=== PATIENT | female | born 1965 | race Caucasian/White ===

== ENCOUNTER 2016-09-10 06:14 | Inpatient (IN) | payer OTHER ==
[~2016-09-10] VITALS: Ht 162.6 cm; Wt 90.7 kg
--- NOTE | 2016-09-10 07:27 | PHYS DOC ---
Past Medical History Past Medical History: No Pertinent History Past Surgical History: Alcohol Use: Occasionally Drug Use: None Adult General Chief Complaint Chief Complaint: BACK PAIN OR INJURY HPI HPI Patient is a 51 year old female who presents with complaint of mid to low back pain. Patient states her symptoms started suddenly this morning approximately 3 hours prior to arrival. Patient states that she started having worsening tightness and spasms in the middle of her back. Patient states that this has progressed significantly since onset. Patient states she is having difficulty finding position of comfort. Patient denies any loss of bowel or bladder control , saddle anesthesia, or foot drop associated with her symptoms. Patient denies any previous history of back spasms or back pain. Patient has had no associated fevers. Patient states that she does have nausea currently. Patient states that her pain starts in her upper lumbar spine and feels like it is mostly on the right side but affects both sides at this time. Patient denies worsening pain with movement. Patient denies any significant past medical history. Patient states she took ibuprofen for the pain approximately 1-2 hours ago with no improvement in symptoms. Patient rates her pain currently as 7 out of 10. Review of Systems Review of Systems Constitutional: Denies fever or chills [] Eyes: Denies change in visual acuity, redness, or eye pain [] HENT: Denies nasal congestion or sore throat [] Respiratory: Denies cough or shortness of breath [] Cardiovascular: Denies chest pain or edema [] GI: Nausea, denies abdominal pain, vomiting, or diarrhea [] : Denies dysuria or hematuria [] Musculoskeletal: Back pain [] Integument: Denies rash or skin lesions [] Neurologic: Denies headache, focal weakness or sensory changes [] Current Medications Current Medications Current Medications Medications (Trade) Dose Ordered Sig/Della Start Time Stop Time Status Last Admin Dose Admin Ceftriaxone Sodium 50 ml @ 100 mls/hr 1X ONCE 09/10/16 09:00 09/10/16 09:29 DC 09/10/16 08:39 100 MLS/HR Diazepam (Valium) 5 mg 1X ONCE 09/10/16 07:30 09/10/16 07:31 DC 09/10/16 07:48 5 MG Fentanyl Citrate (Fentanyl 2ml Vial) 50 mcg PRN Q15MIN PRN 09/10/16 08:30 09/11/16 08:29 09/10/16 10:46 50 MCG Info (Do NOT chart on this entry -- for MONITORING) 1 each PRN DAILY PRN 09/10/16 08:45 09/12/16 08:44 Iohexol (Omnipaque 300 Mg/ml) 75 ml 1X ONCE 09/10/16 09:00 09/10/16 09:01 DC 09/10/16 08:44 75 ML Ondansetron HCl (Zofran) 4 mg 1X ONCE 09/10/16 07:30 09/10/16 07:31 DC 09/10/16 07:47 4 MG Sodium Chloride 1,000 ml @ 1,000 mls/hr Q1H 09/10/16 07:30 09/10/16 08:29 DC 09/10/16 07:43 1,000 MLS/HR Allergies Allergies Allergies Coded Allergies Type Severity Reaction Last Updated Verified No Known Drug Allergies 09/10/16 No Physical Exam Physical Exam Constitutional: Alert, afebrile, appears in moderate discomfort, seated in a position of comfort. [] HENT: Normocephalic, atraumatic, bilateral external ears normal, oropharynx moist, no oral exudates, nose normal. [] Eyes: PERRLA, EOMI, conjunctiva normal, no discharge. [] Neck: Normal range of motion, no tenderness, supple, no stridor. [] Cardiovascular:Heart rate regular rhythm, no murmur [] Lungs & Thorax: Bilateral breath sounds clear to auscultation [] Abdomen: Bowel sounds normal, soft, right upper quadrant tenderness to palpation , mild guarding, no rebound tenderness, no masses, no pulsatile masses. [] Skin: Warm, dry, no erythema, no rash. [] Back: No midline tenderness, minimal right paraspinous muscle tenderness to palpation, palpable paraspinous muscle spasm, normal range of motion. [] Extremities: No tenderness, no cyanosis, no clubbing, ROM intact, no edema. [] Neurologic: Alert and oriented X 3, normal motor function, normal sensory function, no focal deficits noted. [] Current Patient Data Vital Signs Vital Signs Date Time Temp Pulse Resp B/P (MAP) Pulse Ox O2 Delivery O2 Flow Rate FiO2 09/10/16 10:46 16 98 Room Air 09/10/16 10:30 73 135/69 (91) 09/10/16 06:21 97.4 97.4 Lab Values Laboratory Tests Test 09/10/16 07:30 09/10/16 07:35 Urine Collection Type Unknown Urine Color Yellow Urine Clarity Cloudy Urine pH 5.5 Urine Specific [place] >=1.030 Urine Protein Negative mg/dL (NEG-TRACE) Urine Glucose (UA) Negative mg/dL (NEG) Urine Ketones (Stick) Negative mg/dL (NEG) Urine Blood Trace (NEG) Urine Nitrite Negative (NEG) Urine Bilirubin Negative (NEG) Urine Urobilinogen Dipstick 0.2 mg/dL (0.2 mg/dL) Urine Leukocyte Esterase Moderate (NEG) Urine RBC 1-2 /HPF (0-2) Urine WBC 11-20 /HPF (0-4) Urine Squamous Epithelial Cells Many /LPF Urine Bacteria Few /HPF (0-FEW) Urine Mucus Marked /LPF White Blood Count 9.7 x10^3/uL (4.0-11.0) Red Blood Count 4.39 x10^6/uL (3.50-5.40) Hemoglobin 13.7 g/dL (12.0-15.5) Hematocrit 41.2 % (36.0-47.0) Mean Corpuscular Volume 94 fL (79-100) Mean Corpuscular Hemoglobin 31 pg (25-35) Mean Corpuscular Hemoglobin Concent 33 g/dL (31-37) Red Cell Distribution Width 13.7 % (11.5-14.5) Platelet Count 240 x10^3/uL (140-400) Neutrophils (%) (Auto) 69 % (31-73) Lymphocytes (%) (Auto) 22 % (24-48) L Monocytes (%) (Auto) 7 % (0-9) Eosinophils (%) (Auto) 2 % (0-3) Basophils (%) (Auto) 1 % (0-3) Neutrophils # (Auto) 6.7 x10^3uL (1.8-7.7) Lymphocytes # (Auto) 2.1 x10^3/uL (1.0-4.8) Monocytes # (Auto) 0.6 x10^3/uL (0.0-1.1) Eosinophils # (Auto) 0.2 x10^3/uL (0.0-0.7) Basophils # (Auto) 0.1 x10^3/uL (0.0-0.2) Sodium Level 141 mmol/L (136-145) Potassium Level 3.9 mmol/L (3.5-5.1) Chloride Level 108 mmol/L (98-107) H Carbon Dioxide Level 24 mmol/L (21-32) Anion Gap 9 (6-14) Blood Urea Nitrogen 14 mg/dL (7-20) Creatinine 0.8 mg/dL (0.6-1.0) Estimated GFR (Cockcroft-Gault) 75.6 BUN/Creatinine Ratio 18 (6-20) Glucose Level 110 mg/dL (70-99) H Calcium Level 8.3 mg/dL (8.5-10.1) L Total Bilirubin 0.2 mg/dL (0.2-1.0) Aspartate Amino Transferase (AST) 15 U/L (15-37) Alanine Aminotransferase (ALT) 28 U/L (14-59) Alkaline Phosphatase 69 U/L (46-116) Total Protein 7.2 g/dL (6.4-8.2) Albumin 3.9 g/dL (3.4-5.0) Albumin/Globulin Ratio 1.2 (1.0-1.7) Lipase 150 U/L (73-393) Laboratory Tests 09/10/16 07:35 Laboratory Tests 09/10/16 07:35 EKG EKG Not performed [] Radiology/Procedures Radiology/Procedures [facility] [address] [place] [address] IMAGING REPORT Signed PATIENT: VAIDM JOSEPH ACCOUNT: [id number] : 1965 LOCATION: ER AGE: 51 SEX: F EXAM STATUS: REG ER ORD. PHYSICIAN: JEANNIE SHARMA MD REASON: right lower abdominal pain PROCEDURE: CT ABD PELV W/ IV CONTRST ONLY CT of the abdomen and pelvis with contrast, 09/10/2016: History: Right lower quadrant and back pain Multidetector CT imaging was performed following an IV bolus injection of iodinated contrast material. There is mild linear atelectasis and/or scarring in the lung bases. No hepatic abnormality is seen. The gallbladder is at the upper limits of normal in size. No dense gallstones or pericholecystic edema is evident. The pancreas is unremarkable. The spleen is of normal size. There is a probable tiny subcentimeter cyst in the upper pole the left kidney. The kidneys and adrenal glands are otherwise unremarkable. The abdominal aorta is unremarkable. No abdominal or pelvic adenopathy is seen. The bowel loops are not dilated. A portion of the appendix is visualized and it shows no abnormality. No pericecal inflammatory process is seen. No free fluid or free air is evident in the abdomen or pelvis. IMPRESSION: No acute abdominal or pelvic abnormality is detected. PQRS Compliance Statement: One or more of the following individualized dose reduction techniques were utilized for this examination: 1. Automated exposure control 2. Adjustment of the mA and/or kV according to patient size 3. Use of iterative reconstruction technique DICTATED and SIGNED BY: DELMI GRAY MD DATE: 09/10/16919 CC: JEANNIE SHARMA MD; NO PCP ~ [facility] [address] [place] [address] IMAGING REPORT Signed PATIENT: VADIM JOSEPH ACCOUNT: [id number] : 1965 LOCATION: [address] [place] [address] AGE: 51 SEX: F EXAM STATUS: ADM IN ORD. PHYSICIAN: JEANNIE SHARMA MD REASON: right upper quadrant pain PROCEDURE: ABDOMEN LTD Abdomen Limited ultrasound 09/10/2016 Indication: Right upper quadrant pain, tenderness and nausea Comparison: Same day CT abdomen and pelvis. Findings: Visualized pancreatic body within normal limits. Homogeneous echotexture to the visualized hepatic parenchyma without suspicious focal mass or fluid collection in the visualized portions. Gallbladder is upper limits of normal in size with mild wall thickening measuring up to 6 mm. There is a gallstone at the neck measuring 16 mm. No pericholecystic fluid. Sonographic Caballero sign was elicited. No intrahepatic or ductal dilatation. Common bile duct is mildly dilated measuring 8 mm. Both kidneys are present, though not well evaluated due to poor acoustic window. Impression: Findings concerning for acute calculous cholecystitis. These results were discussed with Dr. Sharma of the emergency service by telephone at 11:10 AM 09/10/[address] Flora Briceno. DICTATED and SIGNED BY: FLORA BRICENO MD DATE: 09/10/16 1104 CC: JEANNIE SHARMA MD; NO PCP; OFELIA MCNEILL MD ~ [] Course & Med Decision Making Course & Med Decision Making Pertinent Labs and Imaging studies reviewed. (See chart for details) Patient was started on IV Valium, Zofran, and IV fluids. The patient's symptoms did not improve with treatment. Patient's CT scan was interpreted as normal, however patient continued to complain of severe symptoms and also stated that she was starting to have localizing pain to her right upper quadrant. For this reason ultrasound was ordered which showed the patient has evidence of cholelithiasis and gallbladder wall thickening with a positive sonographic Caballero's sign. Findings are concerning for possible acute cholecystitis. I spoke with Dr. Diop who stated that he would consult on patient in hospital for evaluation. Patient admitted to Dr. Mcneill. Dragon Disclaimer Debo Disclaimer This electronic medical record was generated, in whole or in part, using a voice recognition dictation system. Departure Departure Impression: Primary Impression: Cholecystitis, acute with cholelithiasis Disposition: ADMITTED INPATIENT Admitting Physician: Ofelia Mcnelil Condition: STABLE Referrals: NO PCP (PCP) Problem Qualifiers Primary Impression: Cholecystitis, acute with cholelithiasis Cholelithiasis location: gallbladder Biliary obstruction: without biliary obstruction Qualified Codes: K80.00 - Calculus of gallbladder with acute cholecystitis without obstruction JEANNIE SHARMA MD Sep 10, 2016 07:27
[2016-09-10] MEDS ORDERED: ONDANSETRON PF 4 MG/2 ML VIAL. IV ONE (07:30)
[2016-09-10] MEDS ORDERED: IV NORMAL SALINE 1000ML BAG 1,000 ML IV SCH (07:30)
[2016-09-10 07:51] LABS: BASO # 0.1 x10^3/uL (0.0-0.2); BASO % 1 % (0-3); EOS % 2 % (0-3); HEMATOCRIT 41.2 % (36.0-47.0); HEMOGLOBIN 13.7 g/dL (12.0-15.5); LYMPH # 2.1 x10^3/uL (1.0-4.8); LYMPH % 22 % (24-48); MEAN CORPUSCULAR HEMOGLOBIN 31 pg (25-35); MEAN CORPUSCULAR HGB CONC 33 g/dL (31-37); MEAN CORPUSCULAR VOLUME 94 fL (79-100); MONO % 7 % (0-9); NEUT % 69 % (31-73); PLATELET COUNT 240 x10^3/uL (140-400); RED BLOOD COUNT 4.39 x10^6/uL (3.50-5.40); RED CELL DISTRIBUTION WIDTH 13.7 % (11.5-14.5); WHITE BLOOD COUNT 9.7 x10^3/uL (4.0-11.0)
[2016-09-10 07:52] LABS: BILIRUBIN,URINE NEGATIVE (NEG); GLUCOSE,URINE NEGATIVE (NEG); NITRITE,URINE NEGATIVE (NEG); PH,URINE 5.5; PROTEIN,URINE NEGATIVE (NEG-TRACE); UROBILINOGEN,URINE 0.2 mg/dL (0.2 mg/dL)
[2016-09-10 08:05] LABS: CALCIUM 8.3 mg/dL (8.5-10.1); CREATININE 0.8 mg/dL (0.6-1.0); GFR 75.6; POTASSIUM 3.9 mmol/L (3.5-5.1)
[2016-09-10 08:10] LABS: ALBUMIN 3.9 g/dL (3.4-5.0); ALBUMIN/GLOBULIN RATIO 1.2 (1.0-1.7); TOTAL BILIRUBIN 0.2 mg/dL (0.2-1.0); TOTAL PROTEIN 7.2 g/dL (6.4-8.2)
[2016-09-10 08:20] LABS: BACTERIA,URINE FEW /HPF (0-FEW)
[2016-09-10 08:21] LABS: SQUAMOUS EPITHELIAL CELL,UR MANY /LPF
[2016-09-10] MEDS: fentaNYL PF VIAL 100 MCG/2 ML VIAL IV PRN ×3 (08:38→10:46)
[2016-09-10] MEDS ORDERED: CONTRAST GIVEN MC PRN (08:45)
[2016-09-10] MEDS ORDERED: IOHEXOL 300 MG/ML 75 ML VIAL IV ONE (09:00)
--- NOTE | 2016-09-10 09:27 | RAD ---
CT of the abdomen and pelvis with contrast, 09/10/2016: History: Right lower quadrant and back pain Multidetector CT imaging was performed following an IV bolus injection of iodinated contrast material. There is mild linear atelectasis and/or scarring in the lung bases. No hepatic abnormality is seen. The gallbladder is at the upper limits of normal in size. No dense gallstones or pericholecystic edema is evident. The pancreas is unremarkable. The spleen is of normal size. There is a probable tiny subcentimeter cyst in the upper pole the left kidney. The kidneys and adrenal glands are otherwise unremarkable. The abdominal aorta is unremarkable. No abdominal or pelvic adenopathy is seen. The bowel loops are not dilated. A portion of the appendix is visualized and it shows no abnormality. No pericecal inflammatory process is seen. No free fluid or free air is evident in the abdomen or pelvis. IMPRESSION: No acute abdominal or pelvic abnormality is detected. PQRS Compliance Statement: One or more of the following individualized dose reduction techniques were utilized for this examination: 1. Automated exposure control 2. Adjustment of the mA and/or kV according to patient size 3. Use of iterative reconstruction technique
--- NOTE | 2016-09-10 11:13 | RAD ---
Abdomen Limited ultrasound 09/10/2016 Indication: Right upper quadrant pain, tenderness and nausea Comparison: Same day CT abdomen and pelvis. Findings: Visualized pancreatic body within normal limits. Homogeneous echotexture to the visualized hepatic parenchyma without suspicious focal mass or fluid collection in the visualized portions. Gallbladder is upper limits of normal in size with mild wall thickening measuring up to 6 mm. There is a gallstone at the neck measuring 16 mm. No pericholecystic fluid. Sonographic Caballero sign was elicited. No intrahepatic or ductal dilatation. Common bile duct is mildly dilated measuring 8 mm. Both kidneys are present, though not well evaluated due to poor acoustic window. Impression: Findings concerning for acute calculous cholecystitis. These results were discussed with Dr. Sharma of the emergency service by telephone at 11:10 AM 09/10/[address] Mehran Briceno.
[2016-09-10 11:39] VITALS: BP 130/82
--- NOTE | 2016-09-10 11:41 | PDOC1 ---
History and Physical Date of Admission Date of Admission DATE: 09/10/16 TIME: 11:37 Identification/Chief Complaint Chief Complaint back pain Problems: Source Source: Caregiver, Chart review, Patient History of Present Illness History of Present Illness 51 y,.o obese female, no signif past medical, no meds at home, acute back spasms today, she thought was from the bed, then later on moved to her R abdominal area, now localizing to RUQ area. NO fevers, some nausea but no emesis. CT done was neg, but US showed GB stones with wall thickening, She still has signif RUQ [pain despite IV fentanyl, Admitted with sx on board Past Medical History Cardiovascular: No pertinent hx Pulmonary: No pertinent hx GI: No pertinent hx Heme/Onc: No pertinent hx Hepatobiliary: No pertinent hx Psych: No pertinent hx Rheumatologic: No pertinent hx Infectious disease: No pertinent hx ENT: No pertinent hx Renal/: No pertinent hx Endocrine: No pertinent hx Dermatology: No pertinent hx Past Surgical History Past Surgical History: Family History Family History: Hypertension Social History Smoke: No ALCOHOL: occassional Drugs: None Current Medications Current Medications Current Medications Sodium Chloride 1,000 ml @ 1,000 mls/hr Q1H IV Last administered on 09/10/16 07:43; Start 09/10/16 at 07:30; Stop 09/10/16 at 08:29; Status DC Ondansetron HCl (Zofran) 4 mg 1X ONCE IV Last administered on 09/10/16 07:47 ; Start 09/10/16 at 07:30; Stop 09/10/16 at 07:31; Status DC Diazepam (Valium) 5 mg 1X ONCE IV Last administered on 09/10/16 07:48; Start 09/10/16 at 07:30; Stop 09/10/16 at 07:31; Status DC Ceftriaxone Sodium 50 ml @ 100 mls/hr 1X ONCE IV Last administered on 08:39; Start 09/10/16 at 09:00; Stop 09/10/16 at 09:29; Status DC Fentanyl Citrate (Fentanyl 2ml Vial) 50 mcg PRN Q15MIN PRN IV PAIN GREATER THAN 3/10 Last administered on 09/10/16 10:46; Start 09/10/16 at 08:30; Stop at 08:29 Iohexol (Omnipaque 300 Mg/ml) 75 ml 1X ONCE IV Last administered on 09/10/16t 08:44; Start 09/10/16 at 09:00; Stop 09/10/16 at 09:01; Status DC Info (Do NOT chart on this entry -- for MONITORING) 1 each PRN DAILY PRN MC SEE COMMENTS; Start 09/10/16 at 08:45; Stop 09/12/16 at 08:44 Allergies Allergies: Coded Allergies: No Known Drug Allergies (Unverified , 09/10/16) ROS General: No: Chills, Night Sweats, Fatigue, Malaise, Appetite, Other PSYCHOLOGICAL ROS: No: Anxiety, Behavioral Disorder, Concentration difficultie , Decreased libido, Depression, Disorientation, Hallucinations, Hostility, Irritablity, Memory difficulties, Mood Swings, Obsessive thoughts, Physical abuse, Sexual abuse, Sleep disturbances, Suicidal ideation, Other HEENT: No: Heacaches, Visual Changes, Hearing change, Nasal congestion, Nasal discharge, Oral lesions, Sinus pain, Sore Throat, Epistaxis, Sneezing, Snoring, Tinnitus, Vertigo, Vocal changes, Other ALLERGY AND IMMUNOLOGY: No: Hives, Insect Bite Sensitivity, Itchy/Watery Eyes, Nasal Congestion, Post Nasal Drip, Seasonal Allergies, Other Hematological and Lymphatic: No: Bleeding Problems, Blood Clots, Blood Transfusions, Brusing, Night Sweats, Pallor, Swollen Lymph Nodes, Other ENDOCRINE: No: Breast Changes, Galactorrhea, Hair Pattern Changes, Hot Flashes , Malaise/lethargy, Mood Swings, Palpitations, Polydipsia/polyuria, Skin Changes , Temperature Intolerance, Unexpected Weight Changes, Other Breast: No New/Changing Breast Lumps, No Nipple changes, No Nipple discharge, No Other Respiratory: No: Cough, Hemoptysis, Orthopnea, Pleuritic Pain, Shortness of breath, SOB with excertion, Sputum Changes, Stridor, Tachypnea, Wheezing, Other Cardiovascular: No Chest Pain, No Palpitations, No Orthopnea, No Paroxysmal Noc. Dyspnea, No Edema, No Lt Headedness, No Other Gastrointestinal: Yes Nausea, Yes Abdominal Pain Genitourinary: No Dysuria, No Frequency, No Incontinence, No Hematuria, No Retention, No Discharge, No Urgency, No Pain, No Flank Pain, No Other, No , No , No , No , No , No , No Musculoskeletal: No Gait Disturbance, No Joint Pain, No Joint Stiffness, No Joint Swelling, No Muscle Pain, No Muscular Weakness, No Pain In:, No Swelling In:, No Other Neurological: No Behavorial Changes, No Bowel/Bladder ControlChng, No Confusion , No Dizziness, No Gait Disturbance, No Headaches, No Impaired Coord/balance, No Memory Loss, No Numbness/Tingling, No Seizures, No Speech Problems, No Tremors, No Visual Changes, No Weakness, No Other Skin: No Dry Skin, No Eczema, No Hair Changes, No Lumps, No Mole Changes, No Mottling, No Nail Changes, No Pruritus, No Rash, No Skin Lesion Changes, No Other, No Acne Physical Exam General: Alert, Oriented X3, Cooperative, No acute distress HEENT: Atraumatic, PERRLA, EOMI Lungs: Clear to auscultation, Normal air movement Heart: S1S2, RRR, no thrills, no rubs, no gallops, no murmurs Cardiovascular: S1, S2 Abdomen: Soft, Other (tenderness RUQ area, no guarding, NABS) Rectal Exam: not examined PELVIC: Nml ext genitalia Extremities: No clubbing, No cyanosis, No edema, Normal pulses, No tenderness/ swelling Skin: No rashes, No breakdown, No significant lesion Neuro: Normal gait, Normal speech, Strength at 5/5 X4 ext, Normal tone, Sensation intact, Cranial nerves 3-12 NL, Reflexes 2+ Vitals Vitals Vital Signs Date Time Temp Pulse Resp B/P (MAP) Pulse Ox O2 Delivery O2 Flow Rate FiO2 09/10/16 11:15 72 18 135/76 (95) 97 Room Air 09/10/16 06:21 97.4 97.4 Labs Labs Laboratory Tests Test 09/10/16 07:30 09/10/16 07:35 Urine Collection Type Unknown Urine Color Yellow Urine Clarity Cloudy Urine pH 5.5 Urine Specific [place] >=1.030 Urine Protein Negative mg/dL (NEG-TRACE) Urine Glucose (UA) Negative mg/dL (NEG) Urine Ketones (Stick) Negative mg/dL (NEG) Urine Blood Trace (NEG) Urine Nitrite Negative (NEG) Urine Bilirubin Negative (NEG) Urine Urobilinogen Dipstick 0.2 mg/dL (0.2 mg/dL) Urine Leukocyte Esterase Moderate (NEG) Urine RBC 1-2 /HPF (0-2) Urine WBC 11-20 /HPF (0-4) Urine Squamous Epithelial Cells Many /LPF Urine Bacteria Few /HPF (0-FEW) Urine Mucus Marked /LPF White Blood Count 9.7 x10^3/uL (4.0-11.0) Red Blood Count 4.39 x10^6/uL (3.50-5.40) Hemoglobin 13.7 g/dL (12.0-15.5) Hematocrit 41.2 % (36.0-47.0) Mean Corpuscular Volume 94 fL (79-100) Mean Corpuscular Hemoglobin 31 pg (25-35) Mean Corpuscular Hemoglobin Concent 33 g/dL (31-37) Red Cell Distribution Width 13.7 % (11.5-14.5) Platelet Count 240 x10^3/uL (140-400) Neutrophils (%) (Auto) 69 % (31-73) Lymphocytes (%) (Auto) 22 % (24-48) Monocytes (%) (Auto) 7 % (0-9) Eosinophils (%) (Auto) 2 % (0-3) Basophils (%) (Auto) 1 % (0-3) Neutrophils # (Auto) 6.7 x10^3uL (1.8-7.7) Lymphocytes # (Auto) 2.1 x10^3/uL (1.0-4.8) Monocytes # (Auto) 0.6 x10^3/uL (0.0-1.1) Eosinophils # (Auto) 0.2 x10^3/uL (0.0-0.7) Basophils # (Auto) 0.1 x10^3/uL (0.0-0.2) Sodium Level 141 mmol/L (136-145) Potassium Level 3.9 mmol/L (3.5-5.1) Chloride Level 108 mmol/L (98-107) Carbon Dioxide Level 24 mmol/L (21-32) Anion Gap 9 (6-14) Blood Urea Nitrogen 14 mg/dL (7-20) Creatinine 0.8 mg/dL (0.6-1.0) Estimated GFR (Cockcroft-Gault) 75.6 BUN/Creatinine Ratio 18 (6-20) Glucose Level 110 mg/dL (70-99) Calcium Level 8.3 mg/dL (8.5-10.1) Total Bilirubin 0.2 mg/dL (0.2-1.0) Aspartate Amino Transf (AST/SGOT) 15 U/L (15-37) Alanine Aminotransferase (ALT/SGPT) 28 U/L (14-59) Alkaline Phosphatase 69 U/L (46-116) Total Protein 7.2 g/dL (6.4-8.2) Albumin 3.9 g/dL (3.4-5.0) Albumin/Globulin Ratio 1.2 (1.0-1.7) Lipase 150 U/L (73-393) Laboratory Tests Test 09/10/16 07:30 09/10/16 07:35 Urine Collection Type Unknown Urine Color Yellow Urine Clarity Cloudy Urine pH 5.5 Urine Specific [place] >=1.030 Urine Protein Negative mg/dL (NEG-TRACE) Urine Glucose (UA) Negative mg/dL (NEG) Urine Ketones (Stick) Negative mg/dL (NEG) Urine Blood Trace (NEG) Urine Nitrite Negative (NEG) Urine Bilirubin Negative (NEG) Urine Urobilinogen Dipstick 0.2 mg/dL (0.2 mg/dL) Urine Leukocyte Esterase Moderate (NEG) Urine RBC 1-2 /HPF (0-2) Urine WBC 11-20 /HPF (0-4) Urine Squamous Epithelial Cells Many /LPF Urine Bacteria Few /HPF (0-FEW) Urine Mucus Marked /LPF White Blood Count 9.7 x10^3/uL (4.0-11.0) Red Blood Count 4.39 x10^6/uL (3.50-5.40) Hemoglobin 13.7 g/dL (12.0-15.5) Hematocrit 41.2 % (36.0-47.0) Mean Corpuscular Volume 94 fL (79-100) Mean Corpuscular Hemoglobin 31 pg (25-35) Mean Corpuscular Hemoglobin Concent 33 g/dL (31-37) Red Cell Distribution Width 13.7 % (11.5-14.5) Platelet Count 240 x10^3/uL (140-400) Neutrophils (%) (Auto) 69 % (31-73) Lymphocytes (%) (Auto) 22 % (24-48) Monocytes (%) (Auto) 7 % (0-9) Eosinophils (%) (Auto) 2 % (0-3) Basophils (%) (Auto) 1 % (0-3) Neutrophils # (Auto) 6.7 x10^3uL (1.8-7.7) Lymphocytes # (Auto) 2.1 x10^3/uL (1.0-4.8) Monocytes # (Auto) 0.6 x10^3/uL (0.0-1.1) Eosinophils # (Auto) 0.2 x10^3/uL (0.0-0.7) Basophils # (Auto) 0.1 x10^3/uL (0.0-0.2) Sodium Level 141 mmol/L (136-145) Potassium Level 3.9 mmol/L (3.5-5.1) Chloride Level 108 mmol/L (98-107) Carbon Dioxide Level 24 mmol/L (21-32) Anion Gap 9 (6-14) Blood Urea Nitrogen 14 mg/dL (7-20) Creatinine 0.8 mg/dL (0.6-1.0) Estimated GFR (Cockcroft-Gault) 75.6 BUN/Creatinine Ratio 18 (6-20) Glucose Level 110 mg/dL (70-99) Calcium Level 8.3 mg/dL (8.5-10.1) Total Bilirubin 0.2 mg/dL (0.2-1.0) Aspartate Amino Transf (AST/SGOT) 15 U/L (15-37) Alanine Aminotransferase (ALT/SGPT) 28 U/L (14-59) Alkaline Phosphatase 69 U/L (46-116) Total Protein 7.2 g/dL (6.4-8.2) Albumin 3.9 g/dL (3.4-5.0) Albumin/Globulin Ratio 1.2 (1.0-1.7) Lipase 150 U/L (73-393) VTE Prophylaxis Ordered VTE Prophylaxis Devices: Yes VTE Pharmacological Prophylaxi: Yes Assessment/Plan Assessment/Plan 1. Acute cholelithiasis PLAN: Admit NPO Start IVF GS consult for possible lap angel IV pain meds Check PT.INR today LAbs emiliano post OP JONATHON DAVISON MD Sep 10, 2016 11:41
[2016-09-10] MEDS ORDERED: PROCHLORPERAZINE 10 MG/2 ML VIAL. IV PRN (11:45)
[2016-09-10] MEDS ORDERED: MORPHINE SULFATE 2 MG/ML DISP.SYRIN. IV PRN (11:45)
[2016-09-10] MEDS ORDERED: MAGNESIUM HYDROXIDE 2,400 MG/30 ML ORAL.SUSP. PO PRN (11:45)
[2016-09-10] MEDS ORDERED: ZOLPIDEM 5 MG TABLET. PO PRN (11:45)
[2016-09-10] MEDS ORDERED: PROCHLORPERAZINE 25 MG SUPP.RECT. PR PRN (11:45)
[2016-09-10] MEDS ORDERED: MAG HYDROX/ALUMINUM HYD/SIMETH 30 ML ORAL.SUSP PO PRN (11:45)
[2016-09-10] MEDS ORDERED: CALCIUM CARBONATE 500 MG TAB.CHEW PO PRN (11:45)
[2016-09-10] MEDS ORDERED: ONDANSETRON PF 4 MG/2 ML VIAL. IV PRN (11:45)
--- NOTE | 2016-09-10 12:08 | PDOC2 ---
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 Developed mid back pain last night, has not progressed to RUQ. Associated nausea, no emesis. No similar symptoms in past Past Medical History Cardiovascular: No pertinent hx Pulmonary: No pertinent hx GI: No pertinent hx Heme/Onc: No pertinent hx Hepatobiliary: No pertinent hx Psych: No pertinent hx Rheumatologic: No pertinent hx Infectious disease: No pertinent hx ENT: No pertinent hx Renal/: No pertinent hx Endocrine: No pertinent hx Dermatology: No pertinent hx Past Surgical History Past Surgical History: Family History Family History: Hypertension Social History No ALCOHOL: occassional Drugs: None Lives: with Family Current Medications Current Medications Current Medications Sodium Chloride 1,000 ml @ 1,000 mls/hr Q1H IV Last administered on 09/10/16 07:43; Start 09/10/16 at 07:30; Stop 09/10/16 at 08:29; Status DC Ondansetron HCl (Zofran) 4 mg 1X ONCE IV Last administered on 09/10/16 07:47 ; Start 09/10/16 at 07:30; Stop 09/10/16 at 07:31; Status DC Diazepam (Valium) 5 mg 1X ONCE IV Last administered on 09/10/16 07:48; Start 09/10/16 at 07:30; Stop 09/10/16 at 07:31; Status DC Ceftriaxone Sodium 50 ml @ 100 mls/hr 1X ONCE IV Last administered on 08:39; Start 09/10/16 at 09:00; Stop 09/10/16 at 09:29; Status DC Fentanyl Citrate (Fentanyl 2ml Vial) 50 mcg PRN Q15MIN PRN IV PAIN GREATER THAN 3/10 Last administered on 09/10/16 10:46; Start 09/10/16 at 08:30; Stop at 11:39; Status DC Iohexol (Omnipaque 300 Mg/ml) 75 ml 1X ONCE IV Last administered on 7/27/17at 08:44; Start 09/10/16 at 09:00; Stop 09/10/16 at 09:01; Status DC Info (Do NOT chart on this entry -- for MONITORING) 1 each PRN DAILY PRN MC SEE COMMENTS; Start 09/10/16 at 08:45; Stop 09/12/16 at 08:44 Sodium Chloride 1,000 ml @ 100 mls/hr Q10H IV ; Start 09/10/16 at 13:00 Ondansetron HCl (Zofran) 4 mg PRN Q6HRS PRN IV NAUSEA/VOMITING; Start 09/10/16 at 11:45 Prochlorperazine Edisylate (Compazine) 10 mg PRN Q6HRS PRN IV NAUSEA/VOMITING; Start 09/10/16 at 11:45 Prochlorperazine (Compazine) 25 mg PRN Q12HR PRN CO NAUSEA/VOMITING; Start at 11:45 Al Hydroxide/Mg Hydroxide (Mylanta Plus Xs) 30 ml PRN Q3HRS PRN PO HEARTBURN / GAS; Start 09/10/16 at 11:45 Calcium Carbonate/ Glycine (Tums) 500 mg PRN Q3HRS PRN PO UPSET STOMACH; Start 09/10/16 at 11:45 Zolpidem Tartrate (Ambien) 5 mg PRN QHS PRN PO INSOMNIA, MAY REPEAT IN 1HR; Start 09/10/16 at 11:45 Morphine Sulfate 2 mg PRN Q2HR PRN IV PAIN; Start 09/10/16 at 11:45 Acetaminophen/ Hydrocodone Bitart (Lortab 5/325) 1 tab PRN Q4HRS PRN PO MILD PAIN; Start 09/10/16 at 11:45 Ketorolac Tromethamine (Toradol) 30 mg PRN Q6HRS PRN IV PAIN; Start 09/10/16 at 11:45; Stop 09/15/16 at 11:44 Docusate Sodium (Colace) 100 mg BID PO ; Start 09/10/16 at 21:00 Magnesium Hydroxide (Milk Of Magnesia) 2,400 mg PRN Q12HR PRN PO CONSTIPATION; Start 09/10/16 at 11:45 Metronidazole 100 ml @ 100 mls/hr Q8HRS IV ; Start 09/10/16 at 13:00 Ceftriaxone Sodium 1 gm/ Sodium Chloride 50 ml @ 100 mls/hr Q24H IV ; Start at 08:00 Allergies Allergies: Coded Allergies: No Known Drug Allergies (Unverified , 09/10/16) ROS General: No: Chills, Other (fevers) PSYCHOLOGICAL ROS: No: Anxiety, Depression Eyes: No Blurry vision, No Double vision HEENT: No: Heacaches, Sore Throat Hematological and Lymphatic: No: Bleeding Problems, Blood Clots Respiratory: No: Cough, Shortness of breath Cardiovascular: No Chest Pain, No Palpitations Gastrointestinal: Yes Other (see hpi) Genitourinary: No Dysuria, No Hematuria Musculoskeletal: Yes Muscle Pain (back), No Joint Pain Neurological: No Confusion, No Numbness/Tingling Skin: No Pruritus, No Rash Physical Exam General: Alert, Oriented X3, Cooperative, No acute distress HEENT: PERRLA, Mucous membr. moist/pink Lungs: Clear to auscultation, Normal air movement Heart: Regular rate, Normal S1, Normal S2, No murmurs Abdomen: Soft, Other (ND, RUQ TTP moderate) Extremities: No clubbing, No cyanosis Skin: No rashes, No breakdown Neuro: Normal speech, Sensation intact Psych/Mental Status: Mental status NL, Mood NL MUSCULOSKELETAL: No deformity, No swelling Vitals VITALS Vital Signs Date Time Temp Pulse Resp B/P (MAP) Pulse Ox O2 Delivery O2 Flow Rate FiO2 09/10/16 11:15 72 18 135/76 (95) 97 Room Air 09/10/16 06:21 97.4 97.4 Labs Labs Laboratory Tests Test 09/10/16 07:30 09/10/16 07:35 Urine Collection Type Unknown Urine Color Yellow Urine Clarity Cloudy Urine pH 5.5 Urine Specific Brady >=1.030 Urine Protein Negative mg/dL (NEG-TRACE) Urine Glucose (UA) Negative mg/dL (NEG) Urine Ketones (Stick) Negative mg/dL (NEG) Urine Blood Trace (NEG) Urine Nitrite Negative (NEG) Urine Bilirubin Negative (NEG) Urine Urobilinogen Dipstick 0.2 mg/dL (0.2 mg/dL) Urine Leukocyte Esterase Moderate (NEG) Urine RBC 1-2 /HPF (0-2) Urine WBC 11-20 /HPF (0-4) Urine Squamous Epithelial Cells Many /LPF Urine Bacteria Few /HPF (0-FEW) Urine Mucus Marked /LPF White Blood Count 9.7 x10^3/uL (4.0-11.0) Red Blood Count 4.39 x10^6/uL (3.50-5.40) Hemoglobin 13.7 g/dL (12.0-15.5) Hematocrit 41.2 % (36.0-47.0) Mean Corpuscular Volume 94 fL (79-100) Mean Corpuscular Hemoglobin 31 pg (25-35) Mean Corpuscular Hemoglobin Concent 33 g/dL (31-37) Red Cell Distribution Width 13.7 % (11.5-14.5) Platelet Count 240 x10^3/uL (140-400) Neutrophils (%) (Auto) 69 % (31-73) Lymphocytes (%) (Auto) 22 % (24-48) Monocytes (%) (Auto) 7 % (0-9) Eosinophils (%) (Auto) 2 % (0-3) Basophils (%) (Auto) 1 % (0-3) Neutrophils # (Auto) 6.7 x10^3uL (1.8-7.7) Lymphocytes # (Auto) 2.1 x10^3/uL (1.0-4.8) Monocytes # (Auto) 0.6 x10^3/uL (0.0-1.1) Eosinophils # (Auto) 0.2 x10^3/uL (0.0-0.7) Basophils # (Auto) 0.1 x10^3/uL (0.0-0.2) Sodium Level 141 mmol/L (136-145) Potassium Level 3.9 mmol/L (3.5-5.1) Chloride Level 108 mmol/L (98-107) Carbon Dioxide Level 24 mmol/L (21-32) Anion Gap 9 (6-14) Blood Urea Nitrogen 14 mg/dL (7-20) Creatinine 0.8 mg/dL (0.6-1.0) Estimated GFR (Cockcroft-Gault) 75.6 BUN/Creatinine Ratio 18 (6-20) Glucose Level 110 mg/dL (70-99) Calcium Level 8.3 mg/dL (8.5-10.1) Total Bilirubin 0.2 mg/dL (0.2-1.0) Aspartate Amino Transf (AST/SGOT) 15 U/L (15-37) Alanine Aminotransferase (ALT/SGPT) 28 U/L (14-59) Alkaline Phosphatase 69 U/L (46-116) Total Protein 7.2 g/dL (6.4-8.2) Albumin 3.9 g/dL (3.4-5.0) Albumin/Globulin Ratio 1.2 (1.0-1.7) Lipase 150 U/L (73-393) Laboratory Tests Test 09/10/16 07:30 09/10/16 07:35 Urine Collection Type Unknown Urine Color Yellow Urine Clarity Cloudy Urine pH 5.5 Urine Specific Brady >=1.030 Urine Protein Negative mg/dL (NEG-TRACE) Urine Glucose (UA) Negative mg/dL (NEG) Urine Ketones (Stick) Negative mg/dL (NEG) Urine Blood Trace (NEG) Urine Nitrite Negative (NEG) Urine Bilirubin Negative (NEG) Urine Urobilinogen Dipstick 0.2 mg/dL (0.2 mg/dL) Urine Leukocyte Esterase Moderate (NEG) Urine RBC 1-2 /HPF (0-2) Urine WBC 11-20 /HPF (0-4) Urine Squamous Epithelial Cells Many /LPF Urine Bacteria Few /HPF (0-FEW) Urine Mucus Marked /LPF White Blood Count 9.7 x10^3/uL (4.0-11.0) Red Blood Count 4.39 x10^6/uL (3.50-5.40) Hemoglobin 13.7 g/dL (12.0-15.5) Hematocrit 41.2 % (36.0-47.0) Mean Corpuscular Volume 94 fL (79-100) Mean Corpuscular Hemoglobin 31 pg (25-35) Mean Corpuscular Hemoglobin Concent 33 g/dL (31-37) Red Cell Distribution Width 13.7 % (11.5-14.5) Platelet Count 240 x10^3/uL (140-400) Neutrophils (%) (Auto) 69 % (31-73) Lymphocytes (%) (Auto) 22 % (24-48) Monocytes (%) (Auto) 7 % (0-9) Eosinophils (%) (Auto) 2 % (0-3) Basophils (%) (Auto) 1 % (0-3) Neutrophils # (Auto) 6.7 x10^3uL (1.8-7.7) Lymphocytes # (Auto) 2.1 x10^3/uL (1.0-4.8) Monocytes # (Auto) 0.6 x10^3/uL (0.0-1.1) Eosinophils # (Auto) 0.2 x10^3/uL (0.0-0.7) Basophils # (Auto) 0.1 x10^3/uL (0.0-0.2) Sodium Level 141 mmol/L (136-145) Potassium Level 3.9 mmol/L (3.5-5.1) Chloride Level 108 mmol/L (98-107) Carbon Dioxide Level 24 mmol/L (21-32) Anion Gap 9 (6-14) Blood Urea Nitrogen 14 mg/dL (7-20) Creatinine 0.8 mg/dL (0.6-1.0) Estimated GFR (Cockcroft-Gault) 75.6 BUN/Creatinine Ratio 18 (6-20) Glucose Level 110 mg/dL (70-99) Calcium Level 8.3 mg/dL (8.5-10.1) Total Bilirubin 0.2 mg/dL (0.2-1.0) Aspartate Amino Transf (AST/SGOT) 15 U/L (15-37) Alanine Aminotransferase (ALT/SGPT) 28 U/L (14-59) Alkaline Phosphatase 69 U/L (46-116) Total Protein 7.2 g/dL (6.4-8.2) Albumin 3.9 g/dL (3.4-5.0) Albumin/Globulin Ratio 1.2 (1.0-1.7) Lipase 150 U/L (73-393) Images Images Imaging reviewed Assessment/Plan Assessment/Plan Cholecystitis Obesity, BMI 34.3 IV abx, NPO plan Lap angel tomorrow SARAVANAN GARRISON MD 09/10/16 1300: CONSULT Allergies Allergies: Coded Allergies: No Known Drug Allergies (Unverified , 09/10/16) Assessment/Plan Assessment/Plan Patient seen and examined by me. Complains of RUQ abdominal pain radiating to her back, with nausea. Abd is soft, ND TTP RUQ. Labs reviewed. U/S showing gallstones with thickened GB wall. Plan L/S Cholecystectomy in AM. Agree with Nickel's assessment and plan. RAGHAV PADRON APRN Sep 10, 2016 12:08 SARAVANAN GARRISON MD Sep 10, 2016 13:00
[2016-09-10 12:15] LABS: PROTHROMBIN TIME PATIENT 12.4 SEC (11.7-14.0)
[2016-09-10] MEDS: IV 1/2 NORMAL SALINE 1,000 ML IV SCH ×2 (12:18→22:49)
[2016-09-10] MEDS: KETOROLAC TROMETHAMINE 30 MG/ML INJ. IV PRN ×2 (13:10→19:19)
[2016-09-10] MEDS ORDERED: PROMETHAZINE 25 MG in IV NORMAL SALINE 50ML 50 ML IV PRN (14:15)
[2016-09-10 15:14] VITALS: BP 131/83
[2016-09-10 19:00] VITALS: BP 104/57
[2016-09-10] MEDS: DOCUSATE SODIUM 100 MG CAPSULE. PO SCH (20:53)
[2016-09-10 23:00] VITALS: BP 98/55
[2016-09-11] VITALS (10 sets, daily range): BP systolic 93–116; BP diastolic 55–71
--- NOTE | 2016-09-11 00:40 | ACF ---
Admission Forms Criteria ABDOMINAL PAIN Clinical Indications for Admission to Inpatient Care (Place 'X' for any and all applicable criteria): Admission is indicated for ANY ONE of the following(1)(2)(3)(4)(5): [X]I. Inpatient admission required rather than observation care (Also use Abdominal Pain: Observation Care, as appropriate) because of ANY ONE of the following: [ ]a) Severe pain requiring acute inpatient management [X]b) Identification of etiology/finding that requires inpatient care (eg, aortic dissection, free air) [ ]c) Absent bowel sounds with complete ileus(6) [ ]d) Suspected toxic megacolon [ ]e) Severe electrolyte abnormalities requiring inpatient care [ ]f) High fever or infection requiring inpatient admission as indicated by ANY ONE of following(7)(8): [ ] i) Appropriate outpatient or observational care antimicrobial treatment unavailable, not effective, or not feasible [ ] ii) Documented bacteremia [ ] iii) Temperature > 104.9 degrees F (oral) [ ] iv) T >103.1 F (oral) or < 96.8 F(rectal) that does not respond to all emergency treatment measures [ ]g) Signs of intestinal obstruction [B] [ ]h) Hemodynamic instability [ ]i) IV fluid to replace significant ongoing losses (greater than 3 L/m2 per day) (12)(13) [ ]j) Percutaneous or open drainage (eg, abscess, biliary tract ) procedures [ ]k) Parenteral nutrition regimen that must be implemented on inpatient basis [ ]l) Other condition,treatment or monitoring requiring inpatient admission. [ ]II. Peritoneal signs present [ ]III. Surgery needed that cannot be performed on an ambulatory basis. [ ]IV. Evaluation requires patient to not eat or drink for extended period ( eg, more than 24 hours). [ ]V. Contraindications and/or Inappropriate clinical situations for Observational Care in patients with abdominal pain, when ANY ONE of the following is required: [ ]a) Thorough evaluation is required to prevent catastrophic events due to delays in diagnosing (e.g.Mesenteric ischemia) 1,3 [ ]b) Patient with severe pathology or with chronic symptoms unlikely to improve in the ED stay (3) [ ]. General contraindications and/or Inappropriate clinical situations for Observational Care in patients with abdominal pain, when ANY ONE of the following is required: [ ]a) Prediction of prolongation of LOS based on ANY ONE of the following may be considered as a contraindication for observational care 2, 3, 4, 5, 6, 7, 8, 9, 10, 11 [ ]i) Age > 65 yrs. [ ]ii) Patient arriving by ambulance [ ]iii) Patient with high acuity [ ]iv) Patient requiring vital sign monitoring [ ]v) Patient on IV medication [ ]b) Systolic blood pressures 180mmHg 3,12 [ ]c) Patient with altered mental status including delirium and other alteration of consciousness, (3) [ ]d) Patient whose discharge disposition will be to a [facility] home or rehabilitation home should not be managed in Emergency Department Observation Unit. CMS rule requires 3 days hospital stay before such placement.3,13 [ ]e) Patient with failure to thrive due to broad array of etiologies 3,16,17 [ ]f) Inability to ambulate 3,14 Extended stay beyond goal length of stay may be needed for(2)(3): [ ]a) Persistent abdominal pain with suspected intra-abdominal process [ ]b) Diagnosed condition requiring continued stay (e.g., pancreatitis, complicated diverticulitis) [ ]c) Surgery (e.g., colectomy) The original [facility] content created by [facility] has been revised. The portions of the content which have been revised are identified through the use of italic text or in bold, and [facility] has neither reviewed nor approved the modified material.All other unmodified content is copyright [facility]. Please see references footnoted in the original [facility] edition 2016 Admission Criteria Met?: Yes MAURICIO MARIE Sep 11, 2016 00:40
[2016-09-11 04:39] LABS: BASO % 1 % (0-3); EOS % 2 % (0-3); HEMATOCRIT 36.6 % (36.0-47.0); HEMOGLOBIN 12.4 g/dL (12.0-15.5); LYMPH # 2.1 x10^3/uL (1.0-4.8); LYMPH % 26 % (24-48); MEAN CORPUSCULAR HEMOGLOBIN 32 pg (25-35); MEAN CORPUSCULAR HGB CONC 34 g/dL (31-37); MEAN CORPUSCULAR VOLUME 95 fL (79-100); MONO % 9 % (0-9); NEUT % 62 % (31-73); PLATELET COUNT 210 x10^3/uL (140-400); RED BLOOD COUNT 3.88 x10^6/uL (3.50-5.40); RED CELL DISTRIBUTION WIDTH 14.2 % (11.5-14.5)
[2016-09-11 04:59] LABS: CALCIUM 7.6 mg/dL (8.5-10.1); CREATININE 0.7 mg/dL (0.6-1.0); GFR 88.2; POTASSIUM 3.7 mmol/L (3.5-5.1)
[2016-09-11] MEDS: HYDROcodone/APAP 5/325MG 1 TAB TABLET PO PRN ×3 (06:51→16:33)
[2016-09-11] MEDS ORDERED: LIDOCAINE 1% 1 ML SYRINGE. ID PRN (07:00)
[2016-09-11] MEDS ORDERED: ONDANSETRON PF 4 MG/2 ML VIAL. IV PRN (07:00)
[2016-09-11] MEDS ORDERED: HYDROmorphone 2 MG/ML VIAL IV PRN (07:00)
[2016-09-11] MEDS ORDERED: PROCHLORPERAZINE 10 MG/2 ML VIAL. IV PRN (07:00)
[2016-09-11] MEDS ORDERED: IV RINGERS,LACTATED 1000ML 1,000 ML IV SCH (07:00)
[2016-09-11] MEDS ORDERED: MORPHINE SULFATE 2 MG/ML DISP.SYRIN. IV PRN (07:00)
[2016-09-11] MEDS ORDERED: fentaNYL PF VIAL 100 MCG/2 ML VIAL IV PRN ×2 (07:00)
[2016-09-11] MEDS ORDERED: DEXAMETHASONE SOD PHOS 20 MG/5 ML VIAL. ONE (08:41)
[2016-09-11] MEDS ORDERED: MIDAZOLAM HCL/PF 2 MG/2 ML VIAL. ONE (08:41)
[2016-09-11] MEDS ORDERED: ONDANSETRON PF 4 MG/2 ML VIAL. ONE (08:41)
[2016-09-11] MEDS ORDERED: PROPOFOL 20 ML IV ONE (08:41)
[2016-09-11] MEDS ORDERED: fentaNYL PF VIAL 100 MCG/2 ML VIAL ONE ×2 (08:41→09:15)
[2016-09-11] MEDS ORDERED: LIDOCAINE 2% PF Vial for OR 5 ML VIAL. ONE (08:41)
[2016-09-11] MEDS ORDERED: ROCURONIUM 100 MG/10 ML VIAL. ONE (08:41)
[2016-09-11] MEDS ORDERED: BUPIVAC MPF-EPI 0.5%-1:200000 30 ML VIAL. ONE (08:50)
[2016-09-11] MEDS ORDERED: IOHEXOL 300 MG/ML 50 ML VIAL. ONE (08:51)
[2016-09-11] MEDS ORDERED: SURGICEL HEMOSTAT 4X8 EACH. ONE (08:51)
[2016-09-11] MEDS: DOCUSATE SODIUM 100 MG CAPSULE. PO SCH (09:00)
[2016-09-11] MEDS ORDERED: NEOSTIGMINE 10 MG/10 ML VIAL. ONE (09:29)
[2016-09-11] MEDS ORDERED: GLYCOPYRROLATE 1 MG/5 ML VIAL. ONE (09:30)
[2016-09-11] MEDS ORDERED: SEVOFLURANE 61 TO 120 MINUTES. IH ONE (09:31)
[2016-09-11] MEDS ORDERED: KETOROLAC 60 MG/2 ML INJ FOR OR. ONE (09:32)
--- NOTE | 2016-09-11 09:51 | PDOC4 ---
Operative Note Operative Note Date: 09/11/2016 Preoperative diagnosis: Cholecystitis cholelithiasis Postoperative diagnosis: Same Surgeon: Jadon Dictation: Ms. Tsai is a 51-year-old female with complaints of right upper quadrant abdominal pain and an ultrasound showing gallstones. The procedure of laparoscopic cholecystectomy was explained to the patient detail all risks benefits were also discussed including bleeding infection injury to intra- abdominal contents possibly necessitating further or open operations. The patient seemed understanding gave both verbal and written consent to have the procedure performed. Patient was taken to the operating room placed in the supine position general anesthesia was initiated once patient was asleep and intubated her abdomen was prepped and draped usual sterile fashion using ChloraPrep. An area just below the umbilicus was injected with half percent Marcaine with epinephrine at this point an incision was made with 11 blade scalpel and a varies needle was placed within the abdomen. A pneumoperitoneum was achieved once this complete a 11 mm port was placed in a fibromata camera was placed within the abdomen. The abdomen was inspected no other adenopathies were noted at this point 3 5mm ports were placed under direct visualization one in the epigastrium and 2 in the right upper quadrant. The dome of the gallbladder was grasped retracted cephalad the infundibulum of the gallbladder was grasped retracted laterally exposing the triangle cloak there was quite a bit of edema adherent tissues of the triangle are taken down with blunt dissection exposing the cystic duct and cystic artery. Both were doubly clipped and transected the gallbladder was taken off the liver with hook left cautery placed within an Endo Catch bag and removed from the umbilicus. The right upper quadrant was irrigated and suctioned dry hemostasis was deemed to be appropriate and the pneumoperitoneum was reduced. All ports removed and the fascial defect at the umbilicus was closed with a [id number] 0 Vicryl suture and the skin was approximated all port sites with 4-0 subcuticular Monocryl. Mastisol Steri-Strips and Band-Aids were applied as dressings. Patient was awakened and extubated in the operating room taken to recovery in stable condition all sponge instrument and needle counts were listed as correct. Estimate blood loss 20 mL SARAVANAN GARRISON MD Sep 11, 2016 09:51
[2016-09-11] MEDS: IV 1/2 NORMAL SALINE 1,000 ML IV SCH (11:22)
--- NOTE | 2016-09-14 14:29 | PATHOLOGY ---
PATHOLOGY REPORT * * * * * * * * FINAL DIAGNOSIS: Gallbladder, laparoscopic cholecystectomy: - Cholelithiasis. - Acute and chronic cholecystitis. COMMENT: There is no evidence of malignancy. (JPM:pit; 09/14/2016) REPORT ELECTRONICALLY SIGNED BY: Gustavo Stapleton M.D. DATE/TIME: 09/14/2016 14:29 * * * * * * * * GROSS PATHOLOGY: Received in formalin labeled "Ele Wallis, gallbladder and contents," is a 9.0 x 4.1 x 1.1 cm, intact gallbladder with pink-us serosal surfaces. Opening the gallbladder reveals velvety and light brown mucosa with overlying white green areas and an average wall thickness of 0.1 cm. Multiple light yellow, multifaceted calculi are present and no masses are noted grossly. Metal Bending Machine Operator sections from the body and fundus are submitted along with the proximal margin in cassette A1. (KAH; 09/12/2016) INITIAL CPT CODE(S): A; 81006 Professional services performed [place] [facility] [address] Technical services performed by [facility] at [address] [place] [address]. SPECIMEN(S) RECEIVED: A.Gallbladder and its contents CLINICAL HISTORY: Cholelithiasis PATIENT: ELE WALLIS /AGE: 12 1965 (Age: 51) PATIENT #: [id number] ALT CASE #: SPECIMEN COLLECTION DATE: 09/11/2016 SPECIMEN RECEIVED DATE: 09/11/2016 [facility] - [id number] [place] [address] - PHONE: [phone] * * * END OF REPORT * * *
== END 2016-09-11 16:45 | disposition home or self-care (01) | DRG 419 ==
LOC: ER 06:14 → 4 NORTH 10:53
PROVIDERS: ADMIT Internal Medicine; ATTEND Internal Medicine
PROC: 0FT44ZZ Resection of Gallbladder, Percutaneous Endoscopic Approach (ICD-10-PCS; principal; 2016-09-11 09:00)
DX: K80.00 Calculus of gallbladder with acute cholecystitis without obstruction (principal); E66.9 Obesity, unspecified; Z68.34 Body mass index [BMI] 34.0-34.9, adult; Z82.49 Family history of ischemic heart disease and other diseases of the circulatory system; Z72.89 Other problems related to lifestyle
CPT/HCPCS: 36415; 74177; 76705; 80048; 80053; 81001; 83690; 85027; 85610; 87086; 96361; 96365; 96375; J0690; J0696; J0780; J1100; J1885; J2001; J2250; J2270; J2405; J2550; J2704; J2710; J3010; J3360; J3490; J7030; J7120; Q9967; 99285-25